=== PATIENT | male | born 1965 | race Caucasian/White ===

== ENCOUNTER 2019-02-10 21:09 | Emergency (ER) | payer SELFPAY ==
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
[2019-02-10] MEDS ORDERED: ONDANSETRON 4 MG TAB.RAPDIS PO ONE (22:52)
[2019-02-10] MEDS ORDERED: DIPH/PERTUSS(ACELL)/TETANUS VAC/PF 0.5 ML SYR (>=10YO) IM ONE (22:52)
[2019-02-10] MEDS ORDERED: ACETAMINOPHEN 325 MG TABLET PO ONE (22:52)
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
[2019-02-11 03:10] VITALS: BP 131/88
== END 2019-02-11 03:10 | disposition home or self-care (01) ==
LOC: ER 21:09
DX: S06.0X1A Concussion with loss of consciousness of 30 minutes or less, initial encounter (principal); S49.92XA Unspecified injury of left shoulder and upper arm, initial encounter; M79.602 Pain in left arm; R51 Headache; R11.0 Nausea; M54.6 Pain in thoracic spine; H53.8 Other visual disturbances; Y04.0XXA Assault by unarmed brawl or fight, initial encounter
CPT/HCPCS: 99284; 90471; 73090; 73060; 72070; 70450; 70486; 72125; 90715; S0119